=== PATIENT | female | born 2000 | race Caucasian/White ===

== ENCOUNTER 2023-04-05 10:04 | Emergency (ER) | payer OTHER ==
[~2023-04-05] VITALS: Ht 165.1 cm; Wt 51.3 kg
[2023-04-05 10:15] VITALS: BP_SYST 122; PULSE 90; RESP 18; TEMP 97.3; O2SAT 100
[2023-04-05] MEDS ORDERED: ONDA-8 TL (10:33)
== END 2023-04-05 10:45 | disposition home or self-care (01) ==
LOC: SED 10:04
DX: B34.9 Viral infection, unspecified (principal); R11.0 Nausea; R53.1 Weakness; M79.10 Myalgia, unspecified site; Z79.899 Other long term (current) drug therapy
CPT/HCPCS: 99283